=== PATIENT | female | born 2000 | race Caucasian/White ===

== ENCOUNTER 2023-08-08 23:37 | Emergency (ER) | payer BC, SELFPAY ==
[2023-08-08 23:46] VITALS: BP 121/84; PULSE 100; RESP 20; TEMP 36.2; O2SAT 97; BMI 25.0
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
--- OUTSIDE RECORDS SUMMARY | 2023-08-09 01:20 | XMS_ITS | Clinical Summary ---
Author Name Unknown Organization [facility] Address [place], [place] [address] Care Team Providers Care Implementation Services Analyst Name Role Phone Clinic, No Pcp Or Primary Care Provider Unavaila ble Allergies No known active allergies Medications No known medications Active Problems Problem Noted Date Diagnosed Date History of Lyme disease 04/06/2016 Overview: Possibly present for 5 years before treatment with recurrent headache fatigue and joint pains Social History Tobacco Use Types Packs/Day Years Used Date Smoking Tobacco: Never Assessed Social Connections Answer Date Recorded Frequency of Communication with Friends and Fami ly Not on file 04/30/2021 Financial Resource Strain Answer Date R ecorded Difficulty of Paying Living Expenses Not on file 04/30/2021 Difficulty of Paying Living Expenses Not on file 04/30/2021 Sex and Gender Information Value Date Recorded Sex Assigned at Not on file Gender Identity Not on file Sexual Orientation Not on file Obstetrics History Last Filed Vital Signs Vital Sign Reading Time Taken Comments Blood Pressure 120/83 04/30/2021 2:25 PM [employer] Pulse 116 04/30/2021 2:25 PM [employer] Temperature - - Respiratory Rate - - Oxygen Saturation 97% 04/30/2021 2:25 PM [employer] Inhaled Oxygen Concentration - - Weight 67.9 kg (149 lb 9.6 oz) 04/30/2021 2:25 P M [employer] Height - - Body Mass Index - - Plan of Treatment Health Maintenance Due Date Last Done Comments Tdap 2013 Depression screening for age 12+ 2014 HIV for age 15-65 2017 HPV series for age 9-26 (1 - 3-dose series) 2017 Chlamydia for age 16-24 2018 BMI (ht and wt on same day) for age 18+ 01/12/2020 Hepatitis C screening for age 18-79 01/12/2020 Tetanus booster 2022 COVID-19 vaccine series (2022-24 season) 2022 Pap test for age 21-65 2023 Influenza for age 9-49 12/06/2023 Meningococcal series for age 11-21 Aged Out No longer eligible based on patient's age to complete this topic Pneumococcal series for age 6-64 Aged Out No longer eligible based on patient's age to complete this topic Care Teams Implementation Services Analyst Relationship Specialty Start Date End Date Clinic, No Pcp Or . PCP - General 04/26/21
== END 2023-08-09 01:28 | disposition home or self-care (01) ==
LOC: ED 08-09 01:18
PROVIDERS: Emergency Provider Family Medicine
DX: S01.81XA Laceration without foreign body of other part of head, initial encounter (principal); S03.41XA Sprain of jaw, right side, initial encounter; V18.0XXA Pedal cycle driver injured in noncollision transport accident in nontraffic accident, initial encounter
CPT/HCPCS: 12011; 99283; 99284